=== PATIENT | female | born 1990 | race Two or more races ===

== ENCOUNTER 2021-04-22 22:51 | Outpatient (CLI) | payer OTHER ==
[2021-04-22] MEDS ORDERED: PRENATAL TABLE1 EAC1 (23:15)
== END 2021-04-23 22:47 | disposition home or self-care (01) ==
LOC: OBS/DEL 22:51
PROVIDERS: ATTEND Specialist
DX: O60.03 Preterm labor without delivery, third trimester (principal); Z3A.33 33 weeks gestation of pregnancy

== ENCOUNTER 2021-05-04 14:09 | Inpatient (IN) | payer OTHER ==
[~2021-05-04] VITALS: Ht 160 cm; Wt 2.3 kg
[~2021-05-04 14:09] MED LIST: PRENATAL TABLE1 EAC1
[2021-05-08] MEDS ORDERED: IBU800 MG PO (15:04)
[2021-05-08] MEDS ORDERED: SURFAK240 M1 PO (15:04)
== END 2021-05-08 15:59 | disposition home or self-care (01) | DRG 783 ==
LOC: OBS/DEL 14:09 → LDR 05-05 07:52 → OB/GYN 05-05 21:55
PROVIDERS: ADMIT Specialist; ATTEND Specialist
PROC: 0UB70ZZ Excision of Bilateral Fallopian Tubes, Open Approach (ICD-10-PCS; 2021-05-05)
PROC: 4A1HXFZ Monitoring of Products of Conception, Cardiac Rhythm, External Approach (ICD-10-PCS; 2021-05-05)
PROC: 10D00Z1 Extraction of Products of Conception, Low, Open Approach (ICD-10-PCS; principal; 2021-05-05 17:00)
DX: O34.211 Maternal care for low transverse scar from previous cesarean delivery (principal); O60.14X0 Preterm labor third trimester with preterm delivery third trimester, not applicable or unspecified; Z30.2 Encounter for sterilization; Z37.0 Single live birth; Z3A.34 34 weeks gestation of pregnancy; Z20.822 Contact with and (suspected) exposure to COVID-19